=== PATIENT | female | born 1965 | race Caucasian/White ===

== ENCOUNTER → 2021-05-06 09:16 | Outpatient (BNVA) | payer OTHER, SELFPAY | PROVIDERS: PCP Nurse Practitioner | DX: R35.0 Frequency of micturition (principal) | CPT/HCPCS: 51798; 99202 ==

== ENCOUNTER → 2021-08-04 09:51 | Outpatient (BNVA) | payer OTHER, SELFPAY | PROVIDERS: PCP Nurse Practitioner | DX: Z13.89 Encounter for screening for other disorder (principal) ==

== ENCOUNTER → 2021-09-23 12:42 | Outpatient (BNVA) | payer OTHER, SELFPAY | PROVIDERS: PCP Nurse Practitioner; Visit Provider Urology | DX: R33.9 Retention of urine, unspecified (principal); R39.89 Other symptoms and signs involving the genitourinary system; N32.81 Overactive bladder | CPT/HCPCS: 99212 ==